=== PATIENT | female | born 1990 | race Caucasian/White ===

== ENCOUNTER 2021-02-23 15:29 | Emergency (ER) | payer MEDICARE, MEDICAID ==
[~2021-02-23] VITALS: Ht 165.1 cm; Wt 66.0 kg
[2021-02-23 16:10] VITALS: BP 115/77
[2021-02-23] MEDS ORDERED: QUETIAPINE 25MG TABLET PO ONE (18:30)
[2021-02-23] MEDS ORDERED: QUETIAPINE 25MG TABLET ONE (18:50)
== END 2021-02-23 19:10 | disposition home or self-care (01) ==
LOC: ED 16:06
DX: F20.0 Paranoid schizophrenia (principal); Z76.0 Encounter for issue of repeat prescription
CPT/HCPCS: 99283

== ENCOUNTER 2021-03-05 00:19 | Emergency (ER) | payer MEDICARE, MEDICAID ==
[~2021-03-05] VITALS: Ht 167.6 cm; Wt 60.0 kg
--- NOTE | 2021-03-05 00:53 | NUR ---
[facility], [facility] [employer] was on scene and pt was brought to the ER for eval. pt was combative with [facility] and was restrained by them. upon arrival to this ER, pt is calm and cooperative. no restraints needed. pt thinks she is at [place]. alert but oriented to self only at this point. pt with dozens of bruises through out her body. only pt belongings are her pants. they were removed and placed in a pt belonging bag in the psych locker. pt placed in gown. sitter at bedside for frequent checks. room secured.
--- NOTE | 2021-03-05 01:01 | NUR ---
pt refusing blood draw. pt became very aggitated and not allowing staff to draw blood. dr truong notified. he states attempt to give im medication, temporarily restrain pt if necessary ot give meds/draw blood
--- NOTE | 2021-03-05 02:19 | NUR ---
report to Carolina sosa
[2021-03-05 02:28] LABS: BASOPHILS % (AUTO) 0 % (0-1); EOSINOPHILS % (AUTO) 0 % (1-7); LYMPHOCYTES % (AUTO) 15 % (22-44); MEAN CORPUSCULAR HEMOGLOBIN 30.8 pg (27.0-34.8); MEAN CORPUSCULAR HGB CONC 35.4 g/dL (32.4-35.8); MEAN PLATELET VOLUME 8.3 fL (7.4-10.4); MONOCYTES % (AUTO) 15 % (2-9); NEUTROPHILS % (AUTO) 69 % (42-75); PLATELET COUNT 220 x10^3/uL (130-400); RED BLOOD COUNT 4.65 x10^6/uL (3.82-5.3); RED CELL DISTRIBUTION WIDTH 13.2 % (9.6-15.2)
--- NOTE | 2021-03-05 02:28 | NUR ---
report from rock assumed care of pt, sitter at doorway, lab draw done, pt cooperated pt went back to sleep in nad
[2021-03-05 02:41] LABS: ALBUMIN 4.1 g/dL (3.4-5.0); ANION GAP 8 mmol/L (5-15); CALCIUM 9.4 mg/dL (8.5-10.1); CHLORIDE 102 mmol/L (98-107); CREATININE 0.77 mg/dL (0.55-1.02); SALICYLATE LEVEL 4.3 mg/dL (2.8-20.0)
[2021-03-05 02:48] LABS: ALANINE AMINOTRANSFERASE 53 U/L (12-78); ALKALINE PHOSPHATASE 57 U/L (45-117); BILIRUBIN,TOTAL 1.3 mg/dL (0.2-1.0); TOTAL PROTEIN 7.8 g/dL (6.4-8.2)
[2021-03-05] MEDS ORDERED: POTASSIUM CHLORIDE 20 MEQ TAB.ER.PRT PO ONE (03:00)
--- NOTE | 2021-03-05 03:30 | NUR ---
PT RESTING IN NAD SITTER OUT SIDE ROOM
--- NOTE | 2021-03-05 04:30 | NUR ---
PT RESTING IN NAD
[2021-03-05] MEDS ORDERED: POTASSIUM CHLORIDE 20 MEQ TAB.ER.PRT ONE (05:53)
--- NOTE | 2021-03-05 06:07 | NUR ---
WOKE PT UP TO TAKE MEDS PER OCT, POTASSIUM DISOLVED IN 4 OZ H2O, PT SAYS EYES CONTINOUSLY, DOES NOT ANSWER QUESTIONS DRANK WATER COOPERATIVE, AND SAID THANK YOU, PT THEN HUDDLED UNDER COVERS AND WENT BACK TO SLEEP
[2021-03-05] MEDS ORDERED: LORazepam 2 MG/ML, 1ML ONE (06:57)
[2021-03-05] MEDS ORDERED: LORazepam 2 MG/ML, 1ML IM ONE (07:00)
--- NOTE | 2021-03-05 07:16 | NUR ---
ASSUMING CARE OF PATIENT AFTER BEDSIDE REPORT FROM NOC PETRA FOWLER. SAFETY PRECAUTIONS IN PLACE AND SITTER AT BEDSIDE. PT AGIATED THIS MORNING PACING IN ROOM NON-REDIRECTABLE. PT MEDICATED PER EMAR WITH ASSISTANCE OF SECURITY. WILL CONTINUE TO MONITOR CLOSELY.
--- NOTE | 2021-03-05 07:27 | NUR ---
PT UP TO BATHROOM TO PROVIDED UA. PT THROW UA CUP ON GROUND STATING "I AINT GIVING YOU SHIT" THEN PT PROVEDED TO GO BACK TO BED.
--- NOTE | 2021-03-05 08:22 | NUR ---
PT OFFERED BREAKFAST TRAY, PATIENT SLEEPING WITH EVEN AND UNLABORED RESPIRATIONS, SITTER AT BEDSIDE. SAFETY PRECAUTIONS IN PLACE.
--- NOTE | 2021-03-05 08:59 | NUR ---
PT ASLEEP WITH EVEN AND UNLABORED RESPIRATIONS. SAFETY PRECAUTIONS IN PLACE. SITTER AT BEDSIDE.
--- NOTE | 2021-03-05 10:10 | NUR ---
PT ASLEEP WITH EVEN AND UNLABORED RESPIRATION.
--- NOTE | 2021-03-05 11:20 | NUR ---
PT ASLEEP WITH EVEN AND UNLABORED RESPIRATIONS. VSS. AMADO. Addendum: 03/05/21 at 1120 by MANUEL PT ASLEEP WITH EVEN AND UNLABORED RESPIRATIONS. VSS. AMADO. SAFETY PRECAUTIONS IN PLACE AND SITTER AT BEDSIDE.
--- NOTE | 2021-03-05 11:30 | NUR ---
PT UP TO BATHROOM GIVEN UA CUP, PT LEFT UA CUP ON COUNTER AND DID NOT PROVIDED SAMPLE.
--- NOTE | 2021-03-05 12:14 | NUR ---
PT PROVIDED WITH LUNCH TRAY. SITTING IN BED EATING. NADN. SITTER AT BEDSIDE. SAFETY PRECAUTIONS IN PLACE.
--- NOTE | 2021-03-05 13:16 | NUR ---
report received from Marisela zuluaga
[2021-03-05] MEDS ORDERED: DIPHENHYDRAMINE 50 MG/ML, 1ML IM PRN (13:30)
[2021-03-05] MEDS ORDERED: HALOPERIDOL 5 MG TABLET PO PRN (13:30)
[2021-03-05] MEDS ORDERED: DIPHENHYDRAMINE 50 MG CAPSULE PO PRN (13:30)
[2021-03-05] MEDS ORDERED: LORazepam 1MG TABLET PO PRN (13:30)
[2021-03-05] MEDS ORDERED: LORazepam 2 MG/ML, 1ML IM PRN (13:30)
[2021-03-05] MEDS ORDERED: HALOPERIDOL 5 MG/ML IM PRN (13:30)
[2021-03-05 13:34] LABS: AMPHETAMINE SCREEN, URINE Positive (Negative); BENZODIAZEPINE SCREEN, URINE Negative (Negative); CANNABINOID SCREEN, URINE Positive (Negative); COCAINE SCREEN, URINE Negative (Negative); METHADONE SCREEN, URINE Negative (Negative); OPIATE SCREEN, URINE Negative (Negative)
[2021-03-05 13:35] LABS: BARBITURATE SCREEN, URINE Negative (Negative)
[2021-03-05] MEDS ORDERED: LORazepam 1MG TABLET ONE (13:48)
--- NOTE | 2021-03-05 14:03 | NUR ---
pt medciated per order, cooperative and tolerated well. pt sitting in bed, all security precautions in place, nadn, sitter at bedside.
--- NOTE | 2021-03-05 14:40 | NUR ---
TASK RN: PT SLEEPING IN NAD, EVEN UNLABORED RESPIRATIONS, SITTER OUTSIDE OF ROOM.
--- NOTE | 2021-03-05 14:43 | NUR ---
REPORT TAKEN FROM TASK RN JOE, PT SLEEPING IN BED, ALL SECURITY PRECAUTIONS IN PLACE, SITTER AT BEDSIDE, ANEUDY.
--- NOTE | 2021-03-05 15:09 | NUR ---
"patient case coordinator" Dr. Chloé Bermudez called to give some more info on patient. states that she has been advocating for pt for past ten years and that pt has extensive hx of paranoid schizophrenia. Per Chloé, pt was evicted from residence on Thursday and was in Chloé's car yesterday morning when she ran out of vehicle and was not seen since until brought to [place]. Chloé states medications that pt is prescribed are unkown. Psych MADALYN Lundy notified of conversation, provided with contact info.
--- NOTE | 2021-03-05 15:31 | NUR ---
In house Covid swab walked to lab
--- NOTE | 2021-03-05 17:31 | NUR ---
pt sleeping in bed, resps even and unlabored, nadn. security precautions in place, sitter at bedside.
--- NOTE | 2021-03-05 18:50 | NUR ---
bedside report given to hilton zuluaga
--- NOTE | 2021-03-05 19:57 | NUR ---
PT SLEEPING IN [facility]. REPORT GIVEN TO BOB RN
[2021-03-05 19:59] VITALS: BP 100/65
== END 2021-03-05 20:47 ==
LOC: ED 06:11
DX: S70.11XA Contusion of right thigh, initial encounter (principal); Z20.822 Contact with and (suspected) exposure to COVID-19; F23 Brief psychotic disorder; S70.12XA Contusion of left thigh, initial encounter; E87.6 Hypokalemia; F17.210 Nicotine dependence, cigarettes, uncomplicated; X58.XXXA Exposure to other specified factors, initial encounter; Y93.89 Activity, other specified; Y92.89 Other specified places as the place of occurrence of the external cause; Y99.8 Other external cause status
CPT/HCPCS: 36415; 80053; 80299; 80307; 80320; 84703; 85025; 96372; 99285; 99406; J2060; U0003; U0005; 80329; G0480

== ENCOUNTER 2021-03-05 16:26 | Inpatient (IN) | payer MEDICAID, MEDICARE ==
[~2021-03-05] VITALS: Ht 162.6 cm; Wt 58.0 kg
[2021-03-05] MEDS ORDERED: ONDANSETRON ODT 4 MG PO PRN (20:30)
[2021-03-05] MEDS ORDERED: ZIPRASIDONE 20 MG INJ IM PRN (20:30)
[2021-03-05] MEDS ORDERED: DOCUSATE 100 MG CAPSULE PO PRN (20:30)
[2021-03-05] MEDS ORDERED: POLYETHYLENE GLYCOL 17 GM PACKET PO PRN (20:30)
[2021-03-05] MEDS ORDERED: BISACODYL 10 MG SUPP PR PRN (20:30)
[2021-03-05] MEDS: ZIPRASIDONE 20MG CAPSULE PO PRN (21:23)
[2021-03-05 22:20] VITALS: BP 101/72
[2021-03-06 07:25] VITALS: BP 96/65
[2021-03-06] MEDS: NICOTINE 14MG/24 HR PATCH.TD24 TD SCH (09:13)
[2021-03-06] MEDS: POTASSIUM CHLORIDE 20 MEQ TAB.ER.PRT PO SCH (17:36)
[2021-03-06 19:58] VITALS: BP 109/74
[2021-03-06] MEDS: ZIPRASIDONE 40MG CAPSULE PO SCH (20:08)
[2021-03-07 07:28] VITALS: BP 110/72
[2021-03-07] MEDS: POTASSIUM CHLORIDE 20 MEQ TAB.ER.PRT PO SCH ×2 (08:00→17:23)
[2021-03-07] MEDS: ZIPRASIDONE 40MG CAPSULE PO SCH (09:00)
[2021-03-07] MEDS: NICOTINE 14MG/24 HR PATCH.TD24 TD SCH (09:07)
[2021-03-07] MEDS ORDERED: PALIPERIDONE 6 MG TAB.ER.24 ONE (10:00)
[2021-03-07] MEDS: PALIPERIDONE 6 MG TAB.ER.24 PO SCH (10:04)
[2021-03-07] MEDS: BACITRACIN OINT 500U/GM, 15 GM TP SCH (10:06)
[2021-03-08 07:45] VITALS: BP 114/82
[2021-03-08] MEDS: NICOTINE 14MG/24 HR PATCH.TD24 TD SCH (09:05)
[2021-03-08] MEDS: POTASSIUM CHLORIDE 20 MEQ TAB.ER.PRT PO SCH ×2 (09:06→17:09)
[2021-03-08] MEDS: PALIPERIDONE 6 MG TAB.ER.24 PO SCH (09:07)
[2021-03-08] MEDS: BACITRACIN OINT 500U/GM, 15 GM TP SCH (10:21)
[2021-03-09 07:34] VITALS: BP 115/80
[2021-03-09] MEDS: NICOTINE 14MG/24 HR PATCH.TD24 TD SCH (08:35)
[2021-03-09] MEDS: POTASSIUM CHLORIDE 20 MEQ TAB.ER.PRT PO SCH (08:35)
[2021-03-09] MEDS: PALIPERIDONE 6 MG TAB.ER.24 PO SCH (08:36)
[2021-03-09] MEDS: BACITRACIN OINT 500U/GM, 15 GM TP SCH (08:43)
[2021-03-09 18:40] VITALS: BP 104/72
[2021-03-10 07:29] VITALS: BP 118/72
[2021-03-10] MEDS: PALIPERIDONE 3 MG TAB.ER.24 PO SCH (08:56)
[2021-03-10] MEDS: NICOTINE 14MG/24 HR PATCH.TD24 TD SCH (08:56)
[2021-03-10] MEDS: BACITRACIN OINT 500U/GM, 15 GM TP SCH (09:37)
[2021-03-10 19:28] VITALS: BP 126/85
[2021-03-10] MEDS: ACETAMINOPHEN 325 MG TABLET PO PRN (19:48)
[2021-03-11 07:45] VITALS: BP 109/80
[2021-03-11] MEDS: PALIPERIDONE 3 MG TAB.ER.24 PO SCH (08:34)
[2021-03-11] MEDS: NICOTINE 14MG/24 HR PATCH.TD24 TD SCH (08:36)
[2021-03-11] MEDS: ACETAMINOPHEN 325 MG TABLET PO PRN ×2 (08:50→15:24)
[2021-03-11] MEDS: BACITRACIN OINT 500U/GM, 15 GM TP SCH (10:00)
[2021-03-12 07:26] VITALS: BP 106/70
[2021-03-12] MEDS: NICOTINE 14MG/24 HR PATCH.TD24 TD SCH (08:30)
[2021-03-12] MEDS: PALIPERIDONE 3 MG TAB.ER.24 PO SCH (08:35)
[2021-03-12] MEDS: BACITRACIN OINT 500U/GM, 15 GM TP SCH (08:48)
[2021-03-12] MEDS: ACETAMINOPHEN 325 MG TABLET PO PRN (19:46)
[2021-03-13 07:32] VITALS: BP 119/80
[2021-03-13] MEDS: NICOTINE 14MG/24 HR PATCH.TD24 TD SCH (08:40)
[2021-03-13] MEDS: PALIPERIDONE 3 MG TAB.ER.24 PO SCH (08:41)
[2021-03-13] MEDS: BACITRACIN OINT 500U/GM, 15 GM TP SCH (08:49)
[2021-03-13] MEDS: ACETAMINOPHEN 325 MG TABLET PO PRN (16:09)
[2021-03-13 19:34] VITALS: BP 99/65
[2021-03-14 07:56] VITALS: BP 99/64
[2021-03-14] MEDS ORDERED: DIPHENHYDRAMINE 50 MG CAPSULE ONE (08:43)
[2021-03-14] MEDS ORDERED: DIPHENHYDRAMINE 50 MG CAPSULE PO PRN (09:00)
[2021-03-14] MEDS: PALIPERIDONE 3 MG TAB.ER.24 PO SCH (09:38)
[2021-03-14] MEDS: NICOTINE 14MG/24 HR PATCH.TD24 TD SCH (09:39)
[2021-03-14] MEDS: BACITRACIN OINT 500U/GM, 15 GM TP SCH (09:44)
[2021-03-14 19:44] VITALS: BP 109/73
[2021-03-14] MEDS: ACETAMINOPHEN 325 MG TABLET PO PRN (20:37)
[2021-03-15 07:49] VITALS: BP 113/78
[2021-03-15] MEDS: PALIPERIDONE 3 MG TAB.ER.24 PO SCH (08:03)
[2021-03-15] MEDS: NICOTINE 14MG/24 HR PATCH.TD24 TD SCH (08:03)
[2021-03-15] MEDS: ZIPRASIDONE 20MG CAPSULE PO PRN (08:04)
[2021-03-15] MEDS: BACITRACIN OINT 500U/GM, 15 GM TP SCH (09:00)
[2021-03-15] MEDS: ACETAMINOPHEN 325 MG TABLET PO PRN (13:06)
[2021-03-15] MEDS: CARBAMAZEPINE XR 200 MG TABLET PO SCH ×2 (13:06→21:00)
[2021-03-15 19:30] VITALS: BP 101/67
[2021-03-15] MEDS ORDERED: MELATONIN 5 MG TABLET PO PRN (21:00)
[2021-03-16 07:47] VITALS: BP 119/81
[2021-03-16] MEDS: PALIPERIDONE 3 MG TAB.ER.24 PO SCH (08:54)
[2021-03-16] MEDS: CARBAMAZEPINE XR 200 MG TABLET PO SCH ×2 (08:54→21:00)
[2021-03-16] MEDS: NICOTINE 14MG/24 HR PATCH.TD24 TD SCH (08:55)
[2021-03-16] MEDS: BACITRACIN OINT 500U/GM, 15 GM TP SCH (09:45)
[2021-03-16 19:26] VITALS: BP 111/79
[2021-03-17 07:22] VITALS: BP 96/58
[2021-03-17] MEDS: NICOTINE 14MG/24 HR PATCH.TD24 TD SCH (08:38)
[2021-03-17] MEDS: PALIPERIDONE 3 MG TAB.ER.24 PO SCH (08:38)
[2021-03-17] MEDS: CARBAMAZEPINE XR 200 MG TABLET PO SCH ×2 (08:38→21:00)
[2021-03-17] MEDS: BACITRACIN OINT 500U/GM, 15 GM TP SCH (08:39)
[2021-03-17] MEDS: ACETAMINOPHEN 325 MG TABLET PO PRN (13:31)
[2021-03-17 18:34] VITALS: BP 103/69
[2021-03-18 07:34] VITALS: BP 79/55
[2021-03-18] MEDS: BACITRACIN OINT 500U/GM, 15 GM TP SCH (09:00)
[2021-03-18] MEDS: CARBAMAZEPINE XR 200 MG TABLET PO SCH (09:00)
[2021-03-18] MEDS: PALIPERIDONE 3 MG TAB.ER.24 PO SCH (09:07)
[2021-03-18] MEDS: NICOTINE GUM 2 MG BC PRN (10:22)
[2021-03-18 19:26] VITALS: BP 100/72
[2021-03-18] MEDS: DIVALPROEX 500 MG TABLET.DR PO SCH (21:00)
[2021-03-19 07:35] VITALS: BP 99/69
[2021-03-19] MEDS: ACETAMINOPHEN 325 MG TABLET PO PRN (07:58)
[2021-03-19] MEDS: NICOTINE GUM 2 MG BC PRN ×2 (07:59→20:00)
[2021-03-19] MEDS: DIVALPROEX 500 MG TABLET.DR PO SCH (09:00)
[2021-03-19] MEDS: BACITRACIN OINT 500U/GM, 15 GM TP SCH (09:00)
[2021-03-19] MEDS ORDERED: PALIPERIDONE 6 MG TAB.ER.24 PO ONE (10:00)
[2021-03-19] MEDS ORDERED: PALIPERIDONE 1.5 MG TAB.ER.24 PO ONE ×2 (10:00)
[2021-03-19 19:36] VITALS: BP 119/81
[2021-03-19] MEDS: DIVALPROEX 250 MG TABLET.DR PO SCH (21:00)
[2021-03-20] MEDS: PALIPERIDONE 3 MG TAB.ER.24 PO SCH (07:24)
[2021-03-20] MEDS: NICOTINE GUM 2 MG BC PRN ×2 (07:25→18:22)
[2021-03-20 07:48] VITALS: BP 104/72
[2021-03-20] MEDS: DIVALPROEX 250 MG TABLET.DR PO SCH ×2 (09:00→20:41)
[2021-03-20] MEDS: BACITRACIN OINT 500U/GM, 15 GM TP SCH (09:00)
[2021-03-20 20:05] VITALS: BP 98/68
[2021-03-21 07:37] VITALS: BP 117/77
[2021-03-21] MEDS: NICOTINE GUM 2 MG BC PRN ×2 (08:59→14:31)
[2021-03-21] MEDS: PALIPERIDONE 3 MG TAB.ER.24 PO SCH (08:59)
[2021-03-21] MEDS: DIVALPROEX 250 MG TABLET.DR PO SCH (09:00)
[2021-03-21] MEDS: BACITRACIN OINT 500U/GM, 15 GM TP SCH (09:00)
[2021-03-21 19:37] VITALS: BP 105/70
[2021-03-22 07:24] VITALS: BP 112/79
[2021-03-22] MEDS: PALIPERIDONE 6 MG TAB.ER.24 PO SCH (07:39)
[2021-03-22] MEDS: NICOTINE GUM 2 MG BC PRN ×2 (07:40→11:02)
[2021-03-22] MEDS: BACITRACIN OINT 500U/GM, 15 GM TP SCH (08:21)
[2021-03-22 19:40] VITALS: BP 105/65
[2021-03-23 07:14] VITALS: BP 114/92
[2021-03-23] MEDS: PALIPERIDONE 6 MG TAB.ER.24 PO SCH (08:32)
[2021-03-23] MEDS: BACITRACIN OINT 500U/GM, 15 GM TP SCH (08:54)
[2021-03-23] MEDS: NICOTINE GUM 2 MG BC PRN ×3 (08:54→20:40)
[2021-03-23 19:42] VITALS: BP 109/76
[2021-03-24 07:24] VITALS: BP 118/74
[2021-03-24] MEDS: NICOTINE GUM 2 MG BC PRN ×3 (08:41→18:30)
[2021-03-24] MEDS: PALIPERIDONE 6 MG TAB.ER.24 PO SCH (08:41)
[2021-03-24] MEDS: BACITRACIN OINT 500U/GM, 15 GM TP SCH (08:53)
[2021-03-24] MEDS: ACETAMINOPHEN 325 MG TABLET PO PRN ×2 (08:54→20:18)
[2021-03-24] MEDS ORDERED: DIPH50CA PO (16:15)
[2021-03-24] MEDS ORDERED: PALI6TAB5 PO (16:15)
[2021-03-24 19:31] VITALS: BP 98/59
[2021-03-24 20:59] VITALS: BP 106/72
[2021-03-25 07:24] VITALS: BP 113/77
[2021-03-25] MEDS: PALIPERIDONE 6 MG TAB.ER.24 PO SCH (08:28)
[2021-03-25] MEDS: NICOTINE GUM 2 MG BC PRN (08:46)
[2021-03-25] MEDS: BACITRACIN OINT 500U/GM, 15 GM TP SCH (09:00)
== END 2021-03-25 10:28 | disposition home or self-care (01) | DRG 885 ==
LOC: 3E 20:53
PROVIDERS: ADMIT Psychiatry & Neurology Psychosomatic Medicine; ATTEND Psychiatry & Neurology Psychosomatic Medicine
DX: F25.0 Schizoaffective disorder, bipolar type (principal); F11.20 Opioid dependence, uncomplicated; F15.20 Other stimulant dependence, uncomplicated; F12.90 Cannabis use, unspecified, uncomplicated; E87.6 Hypokalemia; F17.210 Nicotine dependence, cigarettes, uncomplicated; Z59.0 Homelessness; Z91.19 Patient's noncompliance with other medical treatment and regimen; Z91.14 Patient's other noncompliance with medication regimen
CPT/HCPCS: 71045; 93005; J3486